=== PATIENT | male | born 1940 | race Caucasian/White ===

== ENCOUNTER 2016-10-11 02:03 | Emergency (ER) | payer MEDICARE, OTHER ==
[~2016-10-11] VITALS: Ht 177.8 cm; Wt 78.0 kg
[2016-10-11 02:09] VITALS: BP 188/140; PULSE 77; RESP 19; TEMP 97.8; O2SAT 97
[2016-10-11] MEDS ORDERED: DIPHTH/TETANUS/ACEL PERTUSSIS (BOOSTER) 0.5 ML VIAL/PFS IM ONE ×2 (02:15→02:27)
[2016-10-11] MEDS ORDERED: SODIUM CHLORIDE 0.9% FLUSH 10 ML FLUSH IVF PRN (02:15)
[2016-10-11] MEDS ORDERED: MORPHINE SULFATE 4 MG/ML INJ IV ONE (02:15)
[2016-10-11] MEDS ORDERED: methylPREDNISolone SOD SUCC 125 MG/2 ML VIAL IV PUSH ONE (02:15)
[2016-10-11] MEDS ORDERED: ONDANSETRON HCL 4 MG/2 ML VIAL IVP ONE (02:15)
[2016-10-11 02:18] VITALS: RESP 17; O2SAT 99
--- NOTE | 2016-10-11 02:20 | PD ---
HPI Chief Complaint: Fall Time Seen by Provider: 02:07 Travel History International Travel<30 days: No Contact w/Intl Traveler<30days: No Traveled to known affect area: No History of Present Illness HPI The patient is a 75-year-old male who presents to the emergency department after a fall in the shower. The patient is currently on vacation from [place]. The patient was taken a shower earlier today when he lost his balance and fell against the shower seat in the shower sliding door. The patient states she received a laceration to the right aspect of the face, also struck his right rib cage on the shower seat. He denies any loss of consciousness, but complains of mild headache and right sided rib pain and chest wall pain that radiates into the abdomen. The pain is worse when he takes a deep breath and with palpation. He also complains of some right hip pain, does have a history of bilateral hip replacements. The patient's last tetanus shot was approximately 25 years ago according to the . The patient does take Aricept for history of dementia. The patient is allergic to codeine and sulfa. The does note the patient has a history of idiopathic urticaria and hives, developed some when they were visiting his son earlier this year, he took 2 doses of Benadryl and then had multiple episodes of syncope according to the . The patient developed a similar rash over the chest wall legs earlier today and took a Zyrtec without any alleviation of his symptoms. EMS did provide Benadryl prior to arrival. The patient denies any numbness or tingling of the upper or lower extremities. PFSH Past Medical History Narrative Medical Dementia Diabetes: Yes (BORDERLINE) Past Surgical History Narrative Surgical Bilateral hip surgery, shoulder surgery, skin cancer removal Social History Tobacco Use: No Allergies-Medications (Allergen,Severity, Reaction): Coded Allergies: Codeine (Verified Allergy, Severe, 10/11/16) Sulfa (Verified Allergy, Severe, 10/11/16) Reported Meds & Prescriptions Reported Meds & Active Scripts Active Reported Aricept (Donepezil) 23 Mg Tab 23 Mg PO HS Do not split, crushed or chewed. Review of Systems Except as stated in HPI: all other systems reviewed are Neg General / Constitutional: No: Fever Eyes: No: Visual changes HENT: Positive: Headaches, No: Neck Pain Cardiovascular: Positive: Chest Pain or Discomfort (right chest wall pain) Respiratory: Positive: Pleuritic Pain Gastrointestinal: Positive: Abdominal Pain (right flank pain), No: Nausea, Vomiting Genitourinary: Positive: Flank Pain (right flank pain) Musculoskeletal: Positive: Pain (pain over the lateral right hip) Skin: Positive Rash, Positive Itching Neurologic: Positive: Weakness, Other (history of dementia), No: Dizziness Physical Exam Narrative GENERAL: Awake, alert, pleasant 75-year-old male who appears his stated age and is in no acute respiratory distress. SKIN: Focused skin assessment warm/dry. The patient has your urticaria with erythema that blanches over the chest wall and legs. HEAD: 3 cm superficial transverse laceration to the right aspect of the face. EYES: Pupils equal and round. Pupils are 3 mm bilateral and reactive. ENT: No nasal bleeding or discharge. Mucous membranes pink and moist. NECK: Trachea midline. No JVD. No tenderness of the cervical vertebrae. CARDIOVASCULAR: Regular rate and rhythm. No murmur appreciated. Tenderness of the right lateral chest wall. RESPIRATORY: No accessory muscle use. Clear to auscultation. Breath sounds equal bilaterally. GASTROINTESTINAL: Abdomen soft, tenderness over the right flank.. MUSCULOSKELETAL: Well-healed scar over the lateral aspect of the right hip. Mild tenderness of the lateral aspect of the right hip. NEUROLOGICAL: Awake and alert. No obvious cranial nerve deficits. Motor grossly within normal limits. Normal speech. Follows simple commands. PSYCHIATRIC: Appropriate mood and affect; insight and judgment normal. Data Data Last Documented VS Vital Signs Date Time Temp Pulse Resp B/P Pulse Ox O2 Delivery O2 Flow Rate FiO2 10/11/16 02:23 74 20 154/70 100 Room Air 10/11/16 02:09 97.8 Orders Basic Metabolic Panel (Bmp) (10/11/16 02:14) Complete Blood Count With Diff (10/11/16 02:14) Prothrombin Time / Inr (Pt) (10/11/16 02:14) Act Partial Throm Time (Ptt) (10/11/16 02:14) Type And Screen (10/11/16 02:14) Chest, Single Ap (10/11/16 02:14) Pelvis, Ap Only (Routine) (10/11/16 02:14) Ct Brain W/O Iv Contrast(Rout) (10/11/16 02:14) Ct Cerv Spine W/O Contrast (10/11/16 02:14) Ct Abd/Pel W Iv Contrast(Rout) (10/11/16 02:14) Ct Thorax/ Chest W Iv Contrast (10/11/16 02:14) Iv Access Insert/Monitor (10/11/16 02:14) Ecg Monitoring (10/11/16 02:14) Oximetry (10/11/16 02:14) Oxygen Administration (10/11/16 02:14) Morphine Inj (Morphine Inj) (10/11/16 02:15) Ondansetron Inj (Zofran Inj) (10/11/16 02:15) Kuyp-Uic-Yemdxr (Booster) Inj (Boostrix (10/11/16 02:15) Sodium Chloride 0.9% Flush (Ns Flush) (10/11/16 02:15) Methylprednisolone So Succ Inj (Solumedr (10/11/16 02:15) Eoxt-Fyl-Frleli (Booster) Inj (Boostrix (10/11/16 02:27) Alcohol (Ethanol) (10/11/16 02:14) Protein Corrected Calcium(Pcc) (10/11/16 02:40) Iohexol 350 Inj (Omnipaque 350 Inj) (10/11/16 04:01) Acetamin-Hydrocod 325-5 Mg ([place] 5-325 (10/11/16 04:30) Labs Laboratory Tests Test 10/11/16 02:40 White Blood Count 8.6 TH/MM3 Red Blood Count 5.11 MIL/MM3 Hemoglobin 15.3 GM/DL Hematocrit 45.2 % Mean Corpuscular Volume 88.5 FL Mean Corpuscular Hemoglobin 29.9 PG Mean Corpuscular Hemoglobin 33.8 % Concent Red Cell Distribution Width 13.8 % Platelet Count 267 TH/MM3 Mean Platelet Volume 7.6 FL Neutrophils (%) (Auto) 54.8 % Lymphocytes (%) (Auto) 35.2 % Monocytes (%) (Auto) 7.7 % Eosinophils (%) (Auto) 1.6 % Basophils (%) (Auto) 0.7 % Neutrophils # (Auto) 4.7 TH/MM3 Lymphocytes # (Auto) 3.0 TH/MM3 Monocytes # (Auto) 0.7 TH/MM3 Eosinophils # (Auto) 0.1 TH/MM3 Basophils # (Auto) 0.1 TH/MM3 CBC Comment DIFF FINAL Differential Comment Prothrombin Time 10.7 SEC Prothromb Time International 1.0 RATIO Ratio Activated Partial 21.8 SEC Thromboplast Time Sodium Level 149 MEQ/L Potassium Level 5.6 MEQ/L Chloride Level 117 MEQ/L Carbon Dioxide Level 22.1 MEQ/L Anion Gap 10 MEQ/L Blood Urea Nitrogen 15 MG/DL Creatinine 0.86 MG/DL Estimat Glomerular Filtration 87 ML/MIN Rate Random Glucose 84 MG/DL Calcium Level 6.7 MG/DL Protein Corrected Calcium 7.3 MG/DL Total Protein 5.9 GM/DL Ethyl Alcohol Level LESS THAN 3 MG/DL Blood Type O POSITIVE Antibody Screen NEGATIVE Blood Bank Comment MDM Medical Decision Making Medical Screen Exam Complete: Yes Emergency Medical Condition: Yes Medical Record Reviewed: Yes Interpretation(s) Last Impressions Pelvis X-Ray 10/11/16213 Signed Impressions: Service Date/Time: September 02:20 - CONCLUSION: No acute pelvis abnormality is identified. Anam Melo MD Head CT 10/11/16213 Signed Impressions: Service Date/Time: September 03:39 - CONCLUSION: No acute intracranial abnormality is identified. Anam Melo MD Chest X-Ray 10/11/16213 Signed Impressions: Service Date/Time: September 02:18 - CONCLUSION: No acute cardiopulmonary abnormality is identified. Anam Melo MD Chest CT 10/11/16213 Signed Impressions: Service Date/Time: September 03:45 - CONCLUSION: 1. Right ninth and 10th rib fractures. No pneumothorax or acute abnormality is identified. 2. Coronary artery calcification. Anam Melo MD Cervical Spine CT 10/11/16213 Signed Impressions: Service Date/Time: September 03:39 - CONCLUSION: 1. No acute cervical spine abnormality is identified. Degenerative changes are present. 2. There is a 2.1 cm left thyroid nodule. Anam Melo MD Abdomen/Pelvis CT 10/11/16213 Signed Impressions: Service Date/Time: September 03:45 - CONCLUSION: 1. There are right lateral ninth and 10th rib fractures. No other acute finding is identified in the abdomen or pelvis. 2. Nonacute findings include 6 mm nonobstructing right renal stone and moderate atherosclerotic disease. Anam Melo MD Laboratory Tests Test 10/11/16 02:40 White Blood Count 8.6 TH/MM3 Red Blood Count 5.11 MIL/MM3 Hemoglobin 15.3 GM/DL Hematocrit 45.2 % Mean Corpuscular Volume 88.5 FL Mean Corpuscular Hemoglobin 29.9 PG Mean Corpuscular Hemoglobin 33.8 % Concent Red Cell Distribution Width 13.8 % Platelet Count 267 TH/MM3 Mean Platelet Volume 7.6 FL Neutrophils (%) (Auto) 54.8 % Lymphocytes (%) (Auto) 35.2 % Monocytes (%) (Auto) 7.7 % Eosinophils (%) (Auto) 1.6 % Basophils (%) (Auto) 0.7 % Neutrophils # (Auto) 4.7 TH/MM3 Lymphocytes # (Auto) 3.0 TH/MM3 Monocytes # (Auto) 0.7 TH/MM3 Eosinophils # (Auto) 0.1 TH/MM3 Basophils # (Auto) 0.1 TH/MM3 CBC Comment DIFF FINAL Differential Comment Prothrombin Time 10.7 SEC Prothromb Time International 1.0 RATIO Ratio Activated Partial 21.8 SEC Thromboplast Time Sodium Level 149 MEQ/L Potassium Level 5.6 MEQ/L Chloride Level 117 MEQ/L Carbon Dioxide Level 22.1 MEQ/L Anion Gap 10 MEQ/L Blood Urea Nitrogen 15 MG/DL Creatinine 0.86 MG/DL Estimat Glomerular Filtration 87 ML/MIN Rate Random Glucose 84 MG/DL Calcium Level 6.7 MG/DL Protein Corrected Calcium 7.3 MG/DL Total Protein 5.9 GM/DL Ethyl Alcohol Level LESS THAN 3 MG/DL Blood Type O POSITIVE Antibody Screen NEGATIVE Blood Bank Comment Differential Diagnosis Differential diagnosis includes closed head injury, to cranial hemorrhage, laceration, rib fracture, pelvic contusion, intra-abdominal injury, pneumothorax , hip fracture, hip contusion, idiopathic urticaria, allergic reaction. Narrative Course IV was established, labs are drawn and sent, and the patient was placed on cardiac telemetry monitoring and continuous pulse oximetry monitoring. Chest x- ray and pelvis x-ray were obtained. CT of the brain, cervical spine, thorax, and abdomen/pelvis were ordered. The patient received morphine and Zofran for his symptoms. The patient's protein corrected calcium was mildly low at 7.3. Potassium is minimally elevated, possible hemolysis. CT the brain and cervical spine are unremarkable. Chest x-ray and pelvis x-ray are unremarkable. CT of the thorax and abdomen/pelvis reveals fractures of the night and 10th ribs. The patient was provided an incentive spirometry in the emergency department will be discharged home on ibuprofen and [place]. He is advised to follow-up with his primary physician and return if symptoms worsen or progress. Diagnosis Primary Impression: Rib fractures Qualified Code: S22.41XA - Closed fracture of multiple ribs of right side, initial encounter Additional Impression: Abrasion Patient Instructions: General Instructions Additional Instructions: Medications as directed. Follow-up with your primary physician. Please provide the patient a copy of his x-ray results and CT results at discharge. Return if symptoms worsen or progress. Med/Other Pt SpecificInfo: Prescription(s) given Scripts Hydrocodone-Acetaminophen ([place])5-325 mg Tab1 Tab PO Q6H PRN (PAIN) #12 TAB Ref 0 Prov:David Lau MD 10/11/16 Ibuprofen 400 Mg Nxr002 Mg PO Q6H PRN (PAIN SCALE 1 TO 10) #20 TAB Ref 0 Prov:David Lau MD 10/11/16 Disposition: DISCHARGE HOME Condition: Stable David Lau MD Oct 11, 2016 02:20
[2016-10-11 02:23] VITALS: BP 154/70; PULSE 74; RESP 20; O2SAT 100
[2016-10-11] MEDS ORDERED: ARIC23TA PO (02:23)
--- NOTE | 2016-10-11 02:49 | RADRPT ---
EXAM DATE/TIME: 10/11/2016 02:18 [facility] COMPARISON: No previous studies available for comparison. INDICATIONS : Pain post fall. MEDICAL HISTORY : None. SURGICAL HISTORY : None. ENCOUNTER: Initial ACUITY: 1 day PAIN SCORE: 0/10 LOCATION: Bilateral chest FINDINGS: Portable AP view of the chest demonstrates a normal-sized cardiac silhouette. No effusion, consolidat ion, or pneumothorax is visualized. The bones and soft tissues demonstrate no acute abnormality. CONCLUSION: No acute cardiopulmonary abnormality is identified. Anam Melo MD on October 11, 2016 at 2:47 Board Certified Radiologist. This report was verified electronically.
[2016-10-11 02:54] LABS: AUTOMATED NEUTROPHIL # 4.7 TH/MM3 (1.8-7.7); BASOPHIL # 0.1 TH/MM3 (0-0.2); BASOPHIL % 0.7 % (0.0-2.0); EOSINOPHIL # 0.1 TH/MM3 (0-0.4); EOSINOPHIL % 1.6 % (0.0-4.0); HEMATOCRIT 45.2 % (39.0-51.0); HEMO FLAGS DIFF FINAL; LYMPH % 35.2 % (9.0-44.0); MEAN CELL VOLUME 88.5 FL (80.0-100.0); MEAN CORPUSCULAR HEMOGLOBIN 29.9 PG (27.0-34.0); MEAN CORPUSCULAR HGB CONC 33.8 % (32.0-36.0); MONO % 7.7 % (0.0-8.0); NEUT % 54.8 % (16.0-70.0); PLATELET COUNT 267 TH/MM3 (150-450); RED BLOOD COUNT 5.11 MIL/MM3 (4.50-5.90); RED CELL DISTRIBUTION WIDTH 13.8 % (11.6-17.2); WHITE BLOOD COUNT 8.6 TH/MM3 (4.0-11.0)
--- NOTE | 2016-10-11 02:54 | RADRPT ---
EXAM DATE/TIME: 10/11/2016 02:20 [facility] COMPARISON: No previous studies available for comparison. INDICATIONS : Pelvis pain post fall. MEDICAL HISTORY : None. SURGICAL HISTORY : Bilateral hip replacement. ENCOUNTER: Initial ACUITY: 1 day PAIN SCORE: 5/10 LOCATION: Bilateral pelvis. FINDINGS: AP view of the pelvis demonstrates no fracture or dislocation. There is an old appearing abnormality at the right inferior pubic ramus. Bilateral hip arthroplasty hardware is present. No soft tissue abn ormality is identified. CONCLUSION: No acute pelvis abnormality is identified. Anam Melo MD on October 11, 2016 at 2:52 Board Certified Radiologist. This report was verified electronically.
[2016-10-11 03:14] LABS: APTT (PATIENT) 21.8 SEC (24.3-30.1); PROTHROMBIN TIME - PATIENT 10.7 SEC (9.8-11.6)
[2016-10-11 03:19] LABS: ANION GAP 10 MEQ/L (5-15); BICARBONATE 22.1 MEQ/L (21.0-32.0); BLOOD UREA NITROGEN 15 MG/DL (7-18); CHLORIDE 117 MEQ/L (98-107); GLOMERULAR FILTRATION RATE 87 ML/MIN (>89); POTASSIUM 5.6 MEQ/L (3.5-5.1); SODIUM (NA) 149 MEQ/L (136-145)
--- NOTE | 2016-10-11 03:55 | RADRPT ---
EXAM DATE/TIME: 10/11/2016 03:39 [facility] COMPARISON: No previous studies available for comparison. INDICATIONS : Trauma. Fall. RADIATION DOSE: 56.34 CTDIvol (mGy) MEDICAL HISTORY : Dementia. Diabetes mellitus type 2. SURGICAL HISTORY : Bilateral hips ENCOUNTER: Initial ACUITY: 1 day PAIN SCALE: 6/10 LOCATION: cranial TECHNIQUE: Multiple contiguous axial images were obtained of the head. Using automated exposure control and adj ustment of the mA and/or kV according to patient size, radiation dose was kept as low as reasonably a chievable to obtain optimal diagnostic quality images. DICOM format image data is available electro nically for review and comparison. FINDINGS: CEREBRUM: There is generalized cerebral atrophy. Ventricles are normal in size. No evidence of midline shift, mass lesion, hemorrhage or acute infarction. No extra-axial fluid collections are seen. POSTERIOR FOSSA: The cerebellum and brainstem demonstrate no acute finding. The 4th ventricle is midline. The cerebe llopontine angle is unremarkable. EXTRACRANIAL: Visualized sinuses are clear. SKULL: The calvaria is intact. No evidence of skull fracture. CONCLUSION: No acute intracranial abnormality is identified. Anam Melo MD on October 11, 2016 at 3:52 Board Certified Radiologist. This report was verified electronically.
[2016-10-11] MEDS ORDERED: IOHEXOL 350 MG/ML 10 ML VIAL (for RAD DIAG) IV ONE (04:01)
--- NOTE | 2016-10-11 04:01 | RADRPT ---
EXAM DATE/TIME: 10/11/2016 03:39 [facility] COMPARISON: No previous studies available for comparison. INDICATIONS : Trauma. Fall. RADIATION DOSE: 21.52 CTDIvol (mGy) MEDICAL HISTORY : Dementia. Diabetes mellitus type 2. SURGICAL HISTORY : Bilateral hips ENCOUNTER: Initial ACUITY: 1 day PAIN SCALE: 6/10 LOCATION: neck TECHNIQUE: Volumetric scanning of the cervical spine was performed. Multiplanar reconstructions in the sagittal, coronal and oblique axial planes were performed. Using automated exposure control and adjustment o f the mA and/or kV according to patient size, radiation dose was kept as low as reasonably achievable to obtain optimal diagnostic quality images. DICOM format image data is available electronically f or review and comparison. FINDINGS: There is normal sagittal spine alignment of the cervical spine with cervical kyphosis centered at the C5-C6 level. No anterolisthesis or retrolisthesis is present. The atlantoaxial relationship is withi n normal limits. There is no prevertebral soft tissue swelling present. No fracture or dislocation is identified. No disc herniation is visualized in the upper cervical spine. There is degenerative disc disease at C4-C5 through C7-T1. Facet arthrosis is present at multiple levels. There is a 2.1 cm left hypodense thyroid nodule. Otherwise, the visualized portions of the posterior fossa, paraspinous soft tissues, and upper lung zones demonstrate no acute abnormality. CONCLUSION: 1. No acute cervical spine abnormality is identified. Degenerative changes are present. 2. There is a 2.1 cm left thyroid nodule. Anam Melo MD on October 11, 2016 at 3:57 Board Certified Radiologist. This report was verified electronically.
--- NOTE | 2016-10-11 04:08 | RADRPT ---
EXAM DATE/TIME: 10/11/2016 03:45 [facility] COMPARISON: CHEST SINGLE AP, October 11, 2016, 2:18. INDICATIONS : Trauma. Fall. IV CONTRAST: 95 cc Omnipaque 350 (iohexol) IV ; Cumulative dose for multiple exams. ORAL CONTRAST: No oral contrast ingested. RADIATION DOSE: 16.92 CTDIvol (mGy) ; Combined studies - Thorax/Abdomen/Pelvis MEDICAL HISTORY : Dementia. Diabetes mellitus type 2. SURGICAL HISTORY : Bilateral hips ENCOUNTER: Initial ACUITY: 1 day PAIN SCALE: 8/10 LOCATION: Right abdomen TECHNIQUE: Volumetric scanning of the abdomen and pelvis was performed. Using automated exposure control and ad justment of the mA and/or kV according to patient size, radiation dose was kept as low as reasonably achievable to obtain optimal diagnostic quality images. DICOM format image data is available electro nically for review and comparison. FINDINGS: LOWER LUNGS: Please refer to chest CT report for description of the supradiaphragmatic findings. LIVER: Homogeneous density without lesion. There is no dilation of the biliary tree. No calcified gallston es. SPLEEN: Normal size without lesion. PANCREAS: Within normal limits. KIDNEYS: Normal in size and shape. There is no mass or hydronephrosis. There is a 6 mm nonobstructing right u pper pole renal stone. 11 mm cyst is present abutment kidney. ADRENAL GLANDS: Within normal limits. VASCULAR: There is no aortic aneurysm. There is moderate atherosclerotic disease with ectasia. BOWEL/MESENTERY: The stomach, small bowel, and colon demonstrate no acute abnormality. There is no free intraperitone al air or fluid. ABDOMINAL WALL: Within normal limits. RETROPERITONEUM: There is no lymphadenopathy. BLADDER: Not well visualized due to beam hardening artifact. REPRODUCTIVE: Not well visualized due to beam hardening artifact. INGUINAL: There is no lymphadenopathy or hernia. MUSCULOSKELETAL: There are fractures of the right lateral ninth and 10th ribs. Degenerative changes are present throug hout the spine. Bilateral hip hardware is present. CONCLUSION: 1. There are right lateral ninth and 10th rib fractures. No other acute finding is identified in the abdomen or pelvis. 2. Nonacute findings include 6 mm nonobstructing right renal stone and moderate atherosclerotic disea se. Anam Melo MD on October 11, 2016 at 4:02 Board Certified Radiologist. This report was verified electronically.
--- NOTE | 2016-10-11 04:10 | RADRPT ---
EXAM DATE/TIME: 10/11/2016 03:45 [facility] COMPARISON: No previous studies available for comparison. INDICATIONS : Trauma. Fall. IV CONTRAST: 95 cc Omnipaque 350 (iohexol) IV ; Cumulative dose for multiple exams. RADIATION DOSE: 16.92 CTDIvol (mGy) ; Combined studies - Thorax/Abdomen/Pelvis MEDICAL HISTORY : Dementia. Diabetes mellitus type 2. SURGICAL HISTORY : Bilateral hips ENCOUNTER: Initial ACUITY: 1 day PAIN SCALE: 8/10 LOCATION: Right chest TECHNIQUE: Volumetric scanning of the chest was performed. Using automated exposure control and adjustment of t he mA and/or kV according to patient size, radiation dose was kept as low as reasonably achievable to obtain optimal diagnostic quality images. DICOM format image data is available electronically for review and comparison. Follow-up recommendations for incidentally detected pulmonary nodules are based at a minimum on nodul e size and patient risk factors according to Fleischner Society Guidelines.FINDINGS: LUNGS: There is no consolidation or pneumothorax. There is dependent atelectasis. PLEURA: There is no pleural thickening or pleural effusion. MEDIASTINUM: The heart and great vessels demonstrate no acute abnormality. There is coronary artery calcification . There is no mediastinal or hilar lymphadenopathy. AXILLAE: Within normal limits. No lymphadenopathy. SKELETAL: There are right lateral ninth and 10th rib fractures. Degenerative changes are present throughout the spine. MISCELLANEOUS: Please refer to abdomen and pelvis CT report for description of the subdiaphragmatic findings. CONCLUSION: 1. Right ninth and 10th rib fractures. No pneumothorax or acute abnormality is identified. 2. Coronary artery calcification. Anam Melo MD on October 11, 2016 at 4:07 Board Certified Radiologist. This report was verified electronically.
[2016-10-11 04:21] LABS: CALCIUM-PROTEIN CORRECTED 7.3 MG/DL (8.5-10.1)
[2016-10-11] MEDS ORDERED: ACETAMINOPHEN/HYDROcodone 325 MG/5 MG TAB PO ONE (04:30)
[2016-10-11] MEDS ORDERED: NORC5TAB PO (04:32)
[2016-10-11] MEDS ORDERED: IBUP400T20 PO (04:32)
== END 2016-10-11 05:23 | disposition home or self-care (01) ==
LOC: NEPE 02:03
DX: S22.41XA Multiple fractures of ribs, right side, initial encounter for closed fracture (principal); N20.0 Calculus of kidney; E04.1 Nontoxic single thyroid nodule; R51 Headache; R21 Rash and other nonspecific skin eruption; R53.1 Weakness; W18.2XXA Fall in (into) shower or empty bathtub, initial encounter; Z23 Encounter for immunization; Z79.899 Other long term (current) drug therapy
CPT/HCPCS: 70450; 71010; 71260; 72125; 72170; 74177; 80048; 80307; 84155; 85025; 85610; 85730; 86850; 86900; 86901; 90471; 90715; 94150; 96374; 96375; 99285; J2270; J2405; J2930; Q9967